=== PATIENT | female | born 1975 | race Caucasian/White ===

== ENCOUNTER 2017-01-20 16:42 | Emergency (ER) | payer SELFPAY ==
[~2017-01-20] VITALS: Ht 162.6 cm; Wt 93.0 kg
[~2017-01-20 16:42] MED LIST: RANI150 PO; Z.0.NO CURRENT MEDS; ZOFR4TAB3 SL
[2017-01-20 16:44] VITALS: BP 128/82; PULSE 88; RESP 20; TEMP 98.2; O2SAT 97
--- NOTE | 2017-01-20 17:11 | PD ---
HPI Chief Complaint: Abdominal Pain Time Seen by Provider: 16:56 Travel History International Travel<30 days: No Contact w/Intl Traveler<30days: No Traveled to known affect area: No History of Present Illness HPI Patient comes in complaining of suprapubic abdominal pain ongoing for 4 days. Pain is pressure-like in nature and radiates to her back. Patient reports associated dysuria. Denies any fevers, nausea, vomiting, diarrhea, vaginal discharge, chest pain, shortness breath, or fevers. Patient took Motrin for this with no improvement of her symptoms. Denies anything making it worse. States pain waxes and wanes. Patient reports her daughter is having similar symptoms. Patient reports only abdominal surgery is for C-sections and reports history of fibroids. H&P was obtained through an revenue tax specialist this patient's primary I[place]ian- speaking. Patient was offered using [employer] however patient is declining at this time and is comfortable with revenue tax specialist. PFSH Past Medical History Medical History: Denies Significant Hx Past Surgical History Section: Yes Social History Alcohol Use: No Tobacco Use: No Substance Use: No Allergies-Medications (Allergen,Severity, Reaction): Coded Allergies: No Known Allergies (Unverified , 01/20/17) Reported Meds & Prescriptions Reported Meds & Active Scripts Active Bactrim DS (Sulfamethoxazole-Trimethoprim) 800-160 Mg Tab 1 Tab PO BID Review of Systems Except as stated in HPI: all other systems reviewed are Neg Physical Exam Narrative GENERAL: Well-developed, overly nourished, in no acute distress, and non-ill appearing. Smiling on exam. SKIN: Focused skin assessment warm and dry. HEAD: Atraumatic. Normocephalic. EYES: Pupils equal and round. EOMI. No scleral icterus. No injection or drainage. ENT: No nasal bleeding or discharge. Mucous membranes pink and moist. NECK: Trachea midline. Supple. No nuclear rigidity. CARDIOVASCULAR: Regular rate and rhythm. No murmur appreciated. RESPIRATORY: No accessory muscle use. No respiratory distress. Clear to auscultation. Breath sounds equal bilaterally. GASTROINTESTINAL: Abdomen soft, nondistended, and no guarding. Hepatic and splenic margins not palpable. Normal bowel sounds 4. No pulsatile mass. No CVA tenderness. Patient reports tenderness to suprapubic area. MUSCULOSKELETAL: No obvious deformities. No clubbing. No cyanosis. No edema. Full range of motion. NEUROLOGICAL: Awake and alert. No obvious cranial nerve deficits. Motor grossly within normal limits. Normal speech. PSYCHIATRIC: Appropriate mood and affect; insight and judgment normal. Data Data Last Documented VS Vital Signs Date Time Temp Pulse Resp B/P (MAP) Pulse Ox O2 Delivery O2 Flow Rate FiO2 01/20/17 18:40 16 01/20/17 18:39 97.8 76 120/77 (91) 99 01/20/17 17:20 Room Air Orders Orders Complete Blood Count With Diff (01/20/17 17:03) Comprehensive Metabolic Panel (01/20/17 17:03) Lipase (01/20/17 17:03) Prothrombin Time / Inr (Pt) (01/20/17 17:03) Act Partial Throm Time (Ptt) (01/20/17 17:03) Urinalysis - C+S If Indicated (01/20/17 17:03) Iv Access Insert/Monitor (01/20/17 17:03) Ecg Monitoring (01/20/17 17:03) Oximetry (01/20/17 17:03) Sodium Chloride 0.9% Flush (Ns Flush) (01/20/17 17:15) Electrocardiogram (01/20/17 17:03) Ed Urine Pregnancytest Poc (01/20/17 17:03) Urine Culture (01/20/17 17:00) Ceftriaxone Inj (Rocephin Inj) (01/20/17 18:00) Ondansetron Inj (Zofran Inj) (01/20/17 18:00) Ketorolac Inj (Toradol Inj) (01/20/17 18:00) Labs Laboratory Tests Test 01/20/17 17:00 White Blood Count 11.0 TH/MM3 Red Blood Count 4.61 MIL/MM3 Hemoglobin 13.4 GM/DL Hematocrit 40.5 % Mean Corpuscular Volume 87.7 FL Mean Corpuscular Hemoglobin 28.9 PG Mean Corpuscular Hemoglobin Concent 33.0 % Red Cell Distribution Width 14.2 % Platelet Count 333 TH/MM3 Mean Platelet Volume 8.0 FL Neutrophils (%) (Auto) 64.2 % Lymphocytes (%) (Auto) 25.9 % Monocytes (%) (Auto) 6.0 % Eosinophils (%) (Auto) 3.4 % Basophils (%) (Auto) 0.5 % Neutrophils # (Auto) 7.1 TH/MM3 Lymphocytes # (Auto) 2.9 TH/MM3 Monocytes # (Auto) 0.7 TH/MM3 Eosinophils # (Auto) 0.4 TH/MM3 Basophils # (Auto) 0.1 TH/MM3 CBC Comment DIFF FINAL Differential Comment Prothrombin Time 10.1 SEC Prothromb Time International Ratio 0.9 RATIO Activated Partial Thromboplast Time 27.7 SEC Urine Color YELLOW Urine Turbidity HAZY Urine pH 6.0 Urine Specific Hester 1.028 Urine Protein TRACE mg/dL Urine Glucose (UA) NEG mg/dL Urine Ketones NEG mg/dL Urine Occult Blood TRACE Urine Nitrite NEG Urine Bilirubin NEG Urine Urobilinogen 2.0 MG/DL Urine Leukocyte Esterase SMALL Urine RBC 6 /hpf Urine WBC 3 /hpf Urine Squamous Epithelial Cells 12 /hpf Urine Bacteria MOD /hpf Urine Mucus FEW /lpf Microscopic Urinalysis Comment CULTURE INDICATED Blood Urea Nitrogen 11 MG/DL Creatinine 0.70 MG/DL Random Glucose 103 MG/DL Total Protein 7.6 GM/DL Albumin 3.4 GM/DL Calcium Level 8.2 MG/DL Alkaline Phosphatase 126 U/L Aspartate Amino Transf (AST/SGOT) 37 U/L Alanine Aminotransferase (ALT/SGPT) 70 U/L Total Bilirubin 0.1 MG/DL Sodium Level 141 MEQ/L Potassium Level 3.7 MEQ/L Chloride Level 108 MEQ/L Carbon Dioxide Level 25.7 MEQ/L Anion Gap 7 MEQ/L Estimat Glomerular Filtration Rate 93 ML/MIN Lipase 68 U/L [facility] Medical Decision Making Medical Screen Exam Complete: Yes Emergency Medical Condition: Yes Interpretation(s) EKG reviewed by Dr. Brantley shows sinus rhythm ventricular rate of 77. No STEMI. Q wave in lead 3. Differential Diagnosis UTI, pyelonephritis, electrolyte abnormality, dehydration, appendicitis, ovarian cyst, other Narrative Course The patient presented with lower abdominal/pelvic pain and the patient was accordingly mildly tender. The patient otherwise appeared comfortable and hydrated. Urine analysis revealed evidence of UTI. There was no evidence of pyelonephritis, cervicitis or PID. Evaluation revealed no clinical evidence or picture of acute ovarian torsion at this time. The patient appears comfortable and no distress and no vomiting. The patient is to return if worsens, pain worsens or changes, worsening back pain, develop persistent fever, inability to tolerate fluids with or without vomiting, unable to establish follow up or as needed. There was no evidence of an acute, surgical abdomen at this time. There was no clinical evidence to support cholecystitis/cholelithiasis, pancreatitis, perforation of gastric ulcer, colitis, diverticulitis, obstruction, volvulus, early appendicitis, abdominal or femoral herniation or hernial incarceration or strangulation at this time. There was no evidence to support vascular pathology such as AAA, mesenteric ischemia. There was also no clinical evidence by history , exam or risk factors to suggest atypical presentation of cardiac disease such as ACS, AMI or atypical angina. The patient agreed with plan of care and management. The patient was instructed to follow up with their physician. Patient in no obvious distress upon re-evaluation. All pertinent laboratory result(s) discussed with patient. Patient was asked if they wanted to speak to my attending, which the patient did not wish to do at this time. Any questions/ concerns in reference to patient diagnosis/condition discussed and clarified prior to patient's discharge. Reinforced sheer importance of close follow up with patient's primary physician or primary care clinic. Instructed patient to return to ED immediately, if symptoms return/worsen. Pt showed understanding of above instructions. Further instructions and recommendations were detailed in discharge paperwork. Pt ambulated without difficulty out of ED at discharge. Diagnosis Primary Impression: UTI (urinary tract infection) Qualified Codes: N39.0 - Urinary tract infection, site not specified; R31.9 - Hematuria, unspecified Referrals: [facility] Patient Instructions: General Instructions, Urinary Tract Infection in Women ( ED) Additional Instructions: Follow-up with your primary care physician in 5-7 days for reevaluation. Take all medication as prescribed. Return to the emergency department if symptoms get worse, fevers, worsening abdominal pain, unable tolerate fluids, chest pain , shortness of breath, worsening back pain, or other concerns. Med/Other Pt SpecificInfo: Prescription(s) given Scripts Sulfamethoxazole-Trimethoprim (Bactrim DS) 800-160 Mg Tab 1 TAB PO BID for Infection, #20 TAB 0 Refills Prov: Angelo Brantley MD 01/20/17 Disposition: 01 DISCHARGE HOME Condition: Stable Kenroy Chapin Jan 20, 2017 17:11
[2017-01-20 17:20] VITALS: RESP 17; O2SAT 99
[2017-01-20] MEDS: SODIUM CHLORIDE 0.9% FLUSH 10 ML FLUSH IV FLUSH PRN ×2 (17:22→18:06)
[2017-01-20 17:35] LABS: AUTOMATED NEUTROPHIL # 7.1 TH/MM3 (1.8-7.7); BASOPHIL # 0.1 TH/MM3 (0-0.2); BASOPHIL % 0.5 % (0.0-2.0); EOSINOPHIL # 0.4 TH/MM3 (0-0.4); EOSINOPHIL % 3.4 % (0.0-4.0); HEMATOCRIT 40.5 % (35.0-46.0); HEMO FLAGS DIFF FINAL; LYMPH % 25.9 % (9.0-44.0); LYMPHOCYTE # 2.9 TH/MM3 (1.0-4.8); MEAN CELL VOLUME 87.7 FL (80.0-100.0); MEAN CORPUSCULAR HEMOGLOBIN 28.9 PG (27.0-34.0); NEUT % 64.2 % (16.0-70.0); PLATELET COUNT 333 TH/MM3 (150-450); RED BLOOD COUNT 4.61 MIL/MM3 (4.00-5.30); RED CELL DISTRIBUTION WIDTH 14.2 % (11.6-17.2)
[2017-01-20 17:38] LABS: BACTERIA, URINE MOD /hpf; BLOOD, URINE TRACE (NEG); GLUCOSE,URINE NEG (NEG); KETONE, URINE NEG (NEG); MUCUS URINE FEW /lpf (OCC); NITRITE,URINE NEG (NEG); SQUAMOUS EPITHELIAL CELL URINE 12 /hpf (0-5); URINE COLOR YELLOW (YELLW/STRAW)
[2017-01-20 17:39] LABS: COMMENT (UR) CULTURE INDICATED; CULTURE IF INDICATED CULTURE INDICATED
[2017-01-20 17:47] LABS: APTT (PATIENT) 27.7 SEC (24.3-30.1); INTERNATIONAL NORMALIZED RATIO 0.9 RATIO; PROTHROMBIN TIME - PATIENT 10.1 SEC (9.8-11.6)
[2017-01-20 17:49] LABS: ALT (GPT) 70 U/L (10-53); ANION GAP 7 MEQ/L (5-15); AST (GOT) 37 U/L (15-37); BICARBONATE 25.7 MEQ/L (21.0-32.0); BLOOD UREA NITROGEN 11 MG/DL (7-18); CHLORIDE 108 MEQ/L (98-107); GLOMERULAR FILTRATION RATE 93 ML/MIN (>89); POTASSIUM 3.7 MEQ/L (3.5-5.1); SODIUM (NA) 141 MEQ/L (136-145)
[2017-01-20 17:51] LABS: ALKALINE PHOSPHATASE 126 U/L (45-117); TOTAL BILIRUBIN ADULT 0.1 MG/DL (0.2-1.0)
[2017-01-20] MEDS ORDERED: BACT800T5 PO (18:00)
[2017-01-20] MEDS ORDERED: cefTRIAXone INJ 1,000 MG in SODIUM CHLORIDE 0.9% INJ 100 ML IV ONE (18:00)
[2017-01-20] MEDS ORDERED: ONDANSETRON HCL 4 MG/2 ML VIAL IV PUSH ONE (18:00)
[2017-01-20] MEDS ORDERED: KETOROLAC TROMETHAMINE 30 MG/ML (IVP) VIAL IV PUSH ONE (18:00)
[2017-01-20 18:39] VITALS: BP 120/77; TEMP 97.8
[2017-01-20 18:40] VITALS: RESP 16
--- NOTE | 2017-01-21 14:32 | EKG ---
Date Performed: 01/20/2017 Time Performed: 17:25:11 PTAGE: 41 years EKG: Sinus rhythm NORMAL ECG NO PREVIOUS TRACING DOCTOR: Lang Grissom Interpretating Date/Time 01/21/2017 14:26:59
== END 2017-01-20 18:40 | disposition home or self-care (01) ==
LOC: NEPE 16:42
DX: N39.0 Urinary tract infection, site not specified (principal); B96.89 Other specified bacterial agents as the cause of diseases classified elsewhere
CPT/HCPCS: 80053; 81001; 83690; 84703; 85025; 85610; 85730; 87086; 93005; 96365; 96375; 99284; J0696; J1885; J2405